=== PATIENT | male | born 1980 | race Caucasian/White ===

== ENCOUNTER 2023-07-15 14:55 | Emergency (ER) | payer SELFPAY ==
[2023-07-15] MEDS ORDERED: PREDNISONE20 M1 PO (18:24)
[2023-07-15] MEDS ORDERED: PROVENTIL HFA6.7 GM INH (18:24)
[2023-07-15] MEDS ORDERED: AVPAK AZITHROM250 M1 PO (18:24)
== END 2023-07-15 15:38 | disposition home or self-care (01) ==
LOC: ED 14:55
DX: F22 Delusional disorders (principal)

== ENCOUNTER 2023-07-15 17:12 | Emergency (ER) | payer SELFPAY ==
[~2023-07-15] VITALS: Ht 203.2 cm; Wt 90.7 kg
[2023-07-15 17:41] LABS: BASO # 0.1 10*3/uL (0.0-0.1); BASO % 0.5 % (0.0-1.0); EOS % 0.4 % (1.0-4.0); HEMATOCRIT 48.2 % (42.0-52.0); LYMPH # 2.2 10*3/uL (1.3-4.4); LYMPH % 19.8 % (27.0-41.0); MEAN CORPUSCULAR HGB 29.9 pg (27.0-31.0); MEAN PLATELET VOLUME 8.9 fl (9.6-12.3); MONO # 0.8 10*3/uL (0.1-1.0); MONO % 7.4 % (3.0-9.0); NEUT # 7.9 10*3/uL (2.3-7.9); NEUT % 71.7 % (47.0-73.0); PLATELET COUNT AUTOMATED 338 10*3/uL (130-400); RED BLOOD COUNT 5.48 10*6/uL (4.50-5.90); RED CELL DISTRI WIDTH 12.2 % (0-14.5)
[2023-07-15 18:05] LABS: ALKALINE PHOSPHATASE 54 U/L (46-116); BUN 6 mg/dl (9-23); CHLORIDE 109 mmol/L (98-107); POTASSIUM 3.2 mmol/L (3.4-5.1); SGPT/ALT 10 U/L (10-49); TOTAL PROTEIN 6.8 gm/dL (6.0-8.0)
[2023-07-15] MEDS ORDERED: AVPAK AZITHROM250 M1 PO (18:24)
[2023-07-15] MEDS ORDERED: PREDNISONE20 M1 PO (18:24)
[2023-07-15] MEDS ORDERED: PROVENTIL HFA6.7 GM INH (18:24)
== END 2023-07-15 18:44 | disposition home or self-care (01) ==
LOC: ED 17:12
PROVIDERS: Emergency Medicine
DX: J45.901 Unspecified asthma with (acute) exacerbation (principal); E87.6 Hypokalemia; Z91.030 Bee allergy status

== ENCOUNTER 2023-10-05 09:43 | Emergency (ER) | payer SELFPAY ==
[~2023-10-05 09:43] MED LIST: AVPAK AZITHROM250 M1 PO; PREDNISONE20 M1 PO; PROVENTIL HFA6.7 GM INH
[2023-10-05 11:18] LABS: BASO % 0.5 % (0.0-1.0); EOS # 0.1 10*3/uL (0.0-0.4); EOS % 0.7 % (1.0-4.0); HEMATOCRIT 41.7 % (42.0-52.0); LYMPH # 1.7 10*3/uL (1.3-4.4); LYMPH % 19.4 % (27.0-41.0); MEAN CORPUSCULAR HGB 30.8 pg (27.0-31.0); MEAN CORPUSCULAR HGB CONC 33.8 g/dl (33.0-37.0); MEAN PLATELET VOLUME 9.7 fl (9.6-12.3); MONO # 0.6 10*3/uL (0.1-1.0); MONO % 7.3 % (3.0-9.0); NEUT # 6.2 10*3/uL (2.3-7.9); NEUT % 71.8 % (47.0-73.0); PLATELET COUNT AUTOMATED 237 10*3/uL (130-400); RED BLOOD COUNT 4.58 10*6/uL (4.50-5.90); WHITE BLOOD COUNT 8.6 10*3/uL (4.8-10.8)
[2023-10-05 11:40] LABS: ALKALINE PHOSPHATASE 38 U/L (46-116); BUN 13 mg/dl (9-23); CHLORIDE 109 mmol/L (98-107); POTASSIUM 4.5 mmol/L (3.4-5.1); SGPT/ALT 10 U/L (5-49); TOTAL PROTEIN 5.9 gm/dL (6.0-8.0)
[2023-10-05] MEDS ORDERED: PROVENTIL HFA6.7 GM INH (12:16)
[2023-10-05] MEDS ORDERED: PREDNISONE20 M1 PO (12:16)
== END 2023-10-05 12:45 | disposition home or self-care (01) ==
LOC: ED 09:43
PROVIDERS: Emergency Medicine
DX: J45.901 Unspecified asthma with (acute) exacerbation (principal); R40.4 Transient alteration of awareness; Z91.030 Bee allergy status